=== PATIENT | male | born 1965 | race Caucasian/White ===

== ENCOUNTER 2017-12-03 11:49 | Day surgery (SDC) | payer OTHER ==
[2017-12-03] MEDS ORDERED: MIDAZOLAM 1 MG/ML 2 ML INJ ×2 (14:11)
[2017-12-03] MEDS ORDERED: FENTAnyl 50 MCG/ML VIAL (14:11)
== END 2017-12-03 14:57 | disposition home or self-care (01) ==
LOC: GIL 11:49
DX: Z12.11 Encounter for screening for malignant neoplasm of colon (principal); D12.5 Benign neoplasm of sigmoid colon
CPT/HCPCS: 45380; 88305